=== PATIENT | male | born 1965 | race African-American/Black ===

== ENCOUNTER 2017-10-12 07:15 | Emergency (ER) | payer SELFPAY ==
[~2017-10-12] VITALS: Ht 170.2 cm; Wt 90.7 kg
[2017-10-12] MEDS ORDERED: BENAZEPRIL HCL10 MG ORAL (07:34)
[2017-10-12] MEDS ORDERED: HYDROCHLOROTH12.5 M2 ORAL (07:35)
[2017-10-12] MEDS ORDERED: ROBAXIN-750750 MG PO (07:56)
[2017-10-12] MEDS ORDERED: IBUPROFEN600 MG ORAL (07:56)
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
[2017-10-12 08:10] VITALS: BP 158/104
== END 2017-10-12 08:14 | disposition home or self-care (01) ==
LOC: EMR 07:55
DX: S13.9XXA Sprain of joints and ligaments of unspecified parts of neck, initial encounter (principal); S39.012A Strain of muscle, fascia and tendon of lower back, initial encounter; M25.512 Pain in left shoulder; M25.511 Pain in right shoulder; V23.4XXA Motorcycle driver injured in collision with car, pick-up truck or van in traffic accident, initial encounter; Y92.410 Unspecified street and highway as the place of occurrence of the external cause; I10 Essential (primary) hypertension
CPT/HCPCS: 99283

== ENCOUNTER 2018-02-04 23:55 | Emergency (ER) | payer MEDICAID ==
[~2018-02-04] VITALS: Ht 170.2 cm; Wt 95.7 kg
[~2018-02-04 23:55] MED LIST: BENAZEPRIL HCL10 MG ORAL; HYDROCHLOROTH12.5 M2 ORAL; IBUPROFEN600 MG ORAL; ROBAXIN-750750 MG PO
[2018-02-05 00:10] VITALS: BP 140/99
[2018-02-05] MEDS ORDERED: Morphine Sulfate 4mg/ml Inj (IV/IM USE ONLY) IVP ONE (00:30)
[2018-02-05 00:43] LABS: HEMATOCRIT 49.5 % (42.0-52.0); HEMOGLOBIN 17.2 G/DL (14.2-18.0); MEAN CORPUSCULAR VOLUME 90 FL (80-99); PLATELET COUNT 316 K/UL (150-450); RED BLOOD COUNT 5.47 M/UL (4.70-6.10); RED CELL DISTRIBUTION WIDTH 11.2 % (11.6-14.8); WHITE BLOOD COUNT 6.2 K/UL (4.8-10.8)
[2018-02-05 00:43] LABS: APPEARANCE,URINE CLEAR; BILIRUBIN, URINE NEGATIVE (NEGATIVE); GLUCOSE, URINE (UA) NEGATIVE (NEGATIVE); KETONES,URINE 1+ (NEGATIVE); LEUKOCYTE ESTERASE ,URINE NEGATIVE (NEGATIVE); NITRITE,URINE NEGATIVE (NEGATIVE); PH,URINE 8 (4.5-8.0); PROTEIN,URINE NEGATIVE (NEGATIVE); UROBILINOGEN,URINE NORMAL MG/DL (0.0-1.0)
[2018-02-05 00:45] LABS: COLOR,URINE YELLOW
[2018-02-05 00:53] LABS: ANION GAP 11 mmol/L (5-15); BLOOD UREA NITROGEN 12 mg/dL (7-18); CALCIUM 9.5 MG/DL (8.5-10.1); CARBON DIOXIDE 27 MMOL/L (21-32); CHLORIDE 98 MMOL/L (98-107); CREATININE 1.4 MG/DL (0.55-1.30); POTASSIUM 3.4 MMOL/L (3.5-5.1); SODIUM 136 MMOL/L (136-145)
[2018-02-05 00:57] LABS: ALANINE AMINOTRANSFERASE 22 U/L (12-78); ALBUMIN 4.2 G/DL (3.4-5.0); ALBUMIN/GLOBULIN RATIO 0.8 (1.0-2.7); ALKALINE PHOSPHATASE 66 U/L (46-116); ASPARTATE AMINO TRANSFERASE 17 U/L (15-37); BILIRUBIN,TOTAL 0.7 MG/DL (0.2-1.0)
[2018-02-05 04:08] VITALS: BP 132/94
--- NOTE | 2018-02-05 04:20 | Emergency Room Report ---
History of Present Illness General Chief Complaint: Nausea, Vomiting, and Diarrhea Source: Patient Present Illness HPI Patient presents with NVD. Started earlier today. 2 days ago he ate oysters. No travel or other unusual foods. Watery diarrhea without any blood. Some cramping. Able to drink sips of water on the way in but still with nausea. No fevers or chills. Girlfriend ate same, but not ill. No other ill contacts. Pain in abdomen intermittent and occasionally 8/10, no radiation, crampy. No URI, chest pain, joint pain, rashes. No dizzy when stand. H/O HTN Allergies: Coded Allergies: No Known Allergies (Unverified , 10/12/17) Patient History Past Medical History: see triage record Social History: Denies: smoking Social History Narrative with girlfriend Reviewed Nursing Documentation: PMH: Agreed; PSxH: Agreed Nursing Documentation-PM Past Medical History: No History, Except For Hx Cardiac Problems: No Hx Hypertension: Yes Hx Pacemaker: No Hx Asthma: No Hx COPD: No Hx Diabetes: No Hx Cancer: No Hx Gastrointestinal Problems: No Hx Dialysis: No Hx Neurological Problems: No Hx Cerebrovascular Accident: No Hx Seizures: No Review of Systems All Other Systems: negative except mentioned in HPI Physical Exam Vital Signs Date Time Temp Pulse Resp B/P (MAP) Pulse Ox O2 Delivery O2 Flow Rate FiO2 02/05/18 00:01 98.4 102 20 128/80 96 Room Air Sp02 EP Interpretation: reviewed, normal General Appearance: well appearing, no apparent distress, GCS 15 Head: normocephalic Eyes: bilateral eye normal inspection, bilateral eye PERRL ENT: moist mucus membranes Neck: supple Respiratory: lungs clear, normal breath sounds Cardiovascular #1: regular rate, rhythm Cardiovascular #2: 2+ radial (R) Gastrointestinal: normal inspection, normal bowel sounds, soft, no mass, non- distended, no guarding, no rebound, tenderness - reported Genitourinary: no CVA tenderness Musculoskeletal: back normal, gait/station normal, normal range of motion Neurologic: alert, oriented x3, grossly normal Psychiatric: mood/affect normal Skin: normal inspection, warm/dry Medical Decision Making Diagnostic Impression: Primary Impression: Nausea, vomiting, and diarrhea ER Course Patient with NVD after eating raw oysters. DDx: viral gastroenteritis, bacterial GItis, food poisoning, electrolyte abnormality. Treatment with IV hydration, zofran. Will eval with labs including stool culture. Labs with normal WBC, CMP and lipase. Normal UA. Improved with tolerating oral liquids and no more abdominal pain. As high possibility of contaminated oysters, will treat with Cipro. Patient stable for outpatient observation and treatment. (Pending stool culture.) Laboratory Tests Test 02/05/18 00:20 02/05/18 00:30 Urine Color Yellow Urine Appearance Clear Urine pH 8 (4.5-8.0) Urine Specific [place] 1.010 (1.005-1.035) Urine Protein Negative (NEGATIVE) Urine Glucose (UA) Negative (NEGATIVE) Urine Ketones 1+ (NEGATIVE) H Urine Blood Negative (NEGATIVE) Urine Nitrite Negative (NEGATIVE) Urine Bilirubin Negative (NEGATIVE) Urine Urobilinogen Normal MG/DL (0.0-1.0) Urine Leukocyte Esterase Negative (NEGATIVE) White Blood Count 6.2 K/UL (4.8-10.8) Red Blood Count 5.47 M/UL (4.70-6.10) Hemoglobin 17.2 G/DL (14.2-18.0) Hematocrit 49.5 % (42.0-52.0) Mean Corpuscular Volume 90 FL (80-99) Mean Corpuscular Hemoglobin 31.4 PG (27.0-31.0) H Mean Corpuscular Hemoglobin Concent 34.7 G/DL (32.0-36.0) Red Cell Distribution Width 11.2 % (11.6-14.8) L Platelet Count 316 K/UL (150-450) Mean Platelet Volume 5.7 FL (6.5-10.1) L Neutrophils (%) (Auto) % (45.0-75.0) Lymphocytes (%) (Auto) % (20.0-45.0) Monocytes (%) (Auto) % (1.0-10.0) Eosinophils (%) (Auto) % (0.0-3.0) Basophils (%) (Auto) % (0.0-2.0) Sodium Level 136 MMOL/L (136-145) Potassium Level 3.4 MMOL/L (3.5-5.1) L Chloride Level 98 MMOL/L (98-107) Carbon Dioxide Level 27 MMOL/L (21-32) Anion Gap 11 mmol/L (5-15) Blood Urea Nitrogen 12 mg/dL (7-18) Creatinine 1.4 MG/DL (0.55-1.30) H Estimate Glomerular Filtration Rate > 60 mL/min (>60) Glucose Level 123 MG/DL (74-106) H Calcium Level 9.5 MG/DL (8.5-10.1) Total Bilirubin 0.7 MG/DL (0.2-1.0) Aspartate Amino Transferase (AST) 17 U/L (15-37) Alanine Aminotransferase (ALT) 22 U/L (12-78) Alkaline Phosphatase 66 U/L (46-116) Total Protein 9.4 G/DL (6.4-8.2) H Albumin 4.2 G/DL (3.4-5.0) Globulin 5.2 g/dL Albumin/Globulin Ratio 0.8 (1.0-2.7) L Lipase 77 U/L (73-393) Last Vital Signs Date Time Temp Pulse Resp B/P (MAP) Pulse Ox O2 Delivery O2 Flow Rate FiO2 02/05/18 04:37 98.5 02/05/18 04:35 88 19 149/96 96 Room Air Status: improved Disposition: HOME, SELF-CARE Condition: Improved Scripts Ondansetron Odt* (ZOFRAN ODT*) 4 Mg Tab.rapdis 4 MG BC EVERY 8 HOURS, #6 TAB 0 Refills Prov: Storm Clemens MD 02/05/18 Ciprofloxacin Hcl* (CIPROFLOXACIN HCL*) 500 Mg Tablet 500 MG ORAL Q12H, #10 TAB 0 Refills Prov: Storm Clemens MD 02/05/18 Referrals: NOT CHOSEN IPA/,REFERRING (PCP) Additional Instructions: Contacted labs to make sure stool culture was set up. Storm Clemens MD Feb 05, 2018 04:20
[2018-02-05] MEDS ORDERED: ONDANSETRON ODT4 MG BC (04:22)
[2018-02-05] MEDS ORDERED: CIPROFLOXACIN500 M2 ORAL (04:22)
[2018-02-05 04:35] VITALS: BP 149/96
== END 2018-02-05 04:35 | disposition home or self-care (01) ==
LOC: EMR 02-05 00:17
DX: R11.2 Nausea with vomiting, unspecified (principal); R19.7 Diarrhea, unspecified; I10 Essential (primary) hypertension
CPT/HCPCS: 36415; 80053; 81003; 83690; 85025; 87045; 87205; 96361; 96374; 96375; 99284; J2270; J2405

== ENCOUNTER 2018-11-13 22:39 | Emergency (ER) | payer SELFPAY ==
[~2018-11-13] VITALS: Ht 170.2 cm; Wt 90.7 kg
[~2018-11-13 22:39] MED LIST changes: +CIPROFLOXACIN500 M2 ORAL; +ONDANSETRON ODT4 MG BC
[2018-11-13 22:42] VITALS: BP 144/102
[2018-11-13 23:00] VITALS: BP 144/102
[2018-11-13] MEDS ORDERED: Acetaminophen 500mg (ES) tab ORAL ONE (23:00)
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
[2018-11-13] MEDS ORDERED: NAPROXEN250 MG ORAL (23:17)
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
--- NOTE | 2018-11-13 23:29 | NUR ---
ER DISCHARGE NOTE: Patient is cleared to be discharged per ERMD, pt is aox4, on room air, with stable vital signs. pt was given dc and prescription instructions, pt was able to verbalize understanding, pt id band removed pt is able to ambulate with steady gait. pt took all belongings.
== END 2018-11-13 23:30 | disposition home or self-care (01) ==
LOC: EMR 23:15
DX: S30.0XXA Contusion of lower back and pelvis, initial encounter (principal); I10 Essential (primary) hypertension; V43.52XA Car driver injured in collision with other type car in traffic accident, initial encounter; Y92.410 Unspecified street and highway as the place of occurrence of the external cause
CPT/HCPCS: 99282